=== PATIENT | female | born 1985 | race African-American/Black ===

== ENCOUNTER 2019-03-09 10:09 | Emergency (ER) | payer OTHER ==
[~2019-03-09] VITALS: Ht 154.9 cm; Wt 56.7 kg
== END 2019-03-09 18:33 | disposition home or self-care (01) ==
LOC: ER 10:09
DX: K52.89 Other specified noninfective gastroenteritis and colitis (principal)

== ENCOUNTER → 2020-06-16 | Outpatient (CLI) | payer OTHER | END | disposition home or self-care (01) | LOC: PRENATAL 08:00 | PROVIDERS: ATTEND Obstetrics & Gynecology Maternal & Fetal Medicine | DX: O35.0XX1 Maternal care for (suspected) central nervous system malformation in fetus, fetus 1 (principal); O35.3XX1 Maternal care for (suspected) damage to fetus from viral disease in mother, fetus 1; O98.512 Other viral diseases complicating pregnancy, second trimester; Z36.89 Encounter for other specified antenatal screening; Z3A.21 21 weeks gestation of pregnancy ==

== ENCOUNTER 2020-09-30 13:30 | Inpatient (IN) | payer OTHER ==
[~2020-09-30] VITALS: Ht 154.9 cm; Wt 66.7 kg
[2020-10-16] MEDS ORDERED: PRENATABS FA T1 EACH PO (04:48)
[2020-10-18] MEDS ORDERED: IRON325 MG PO (09:30)
[2020-10-18] MEDS ORDERED: PRENATABS FA T1 EACH PO (09:34)
== END 2020-10-18 11:38 | disposition home or self-care (01) | DRG 807 ==
LOC: LDR 10-16 05:20 → OB/GYN 10-16 08:24 → SURG-SUITE 10-16 11:30 → OB/GYN 10-24 13:30
PROVIDERS: ADMIT Obstetrics & Gynecology; ATTEND Obstetrics & Gynecology
PROC: 10E0XZZ Delivery of Products of Conception, External Approach (ICD-10-PCS; principal; 2020-10-16)
PROC: 10907ZC Drainage of Amniotic Fluid, Therapeutic from Products of Conception, Via Natural or Artificial Opening (ICD-10-PCS; 2020-10-16)
PROC: 4A1HXFZ Monitoring of Products of Conception, Cardiac Rhythm, External Approach (ICD-10-PCS; 2020-10-16)
DX: O80 Encounter for full-term uncomplicated delivery (principal); Z37.0 Single live birth; Z3A.38 38 weeks gestation of pregnancy; Z20.822 Contact with and (suspected) exposure to COVID-19

== ENCOUNTER 2020-10-16 04:19 | Outpatient (CLI) | payer OTHER ==
[2020-10-16] MEDS ORDERED: PRENATABS FA T1 EACH PO (04:48)
== END 2020-10-16 08:00 | disposition still patient (30) ==
LOC: OBS/DEL 04:19
PROVIDERS: ATTEND Obstetrics & Gynecology
DX: O47.1 False labor at or after 37 completed weeks of gestation (principal); Z3A.38 38 weeks gestation of pregnancy